=== PATIENT | male | born 1960 | race Caucasian/White ===

== ENCOUNTER 2024-12-05 00:35 | Day surgery (SDC) | payer MEDICARE, OTHER, SELFPAY ==
[2024-11-20 13:56] VITALS: BMI 28.5
--- OUTSIDE RECORDS SUMMARY | 2024-12-05 00:41 | XMS_ITS | CONTINUITY OF CARE DOCUMENT ---
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 Atrial enlargement, right active Rose Marie Ranjan timiglia 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 ENCOUNTERS Date Type Provider Location Encounter Diag nosis - In-person encounter Office Visit Danny Balderas MD [place] [facility] - In-person encounter Office Visit Danny Balderas MD [place] [facility] Hypertension benign essentialAbnormal stress electrocardiogramAtrial enlargement, right VITAL SIGNS Date Observation Value Provider Body Mass Index (Ratio) 28.17 kg/m2 Timothy Balderas MD respiratory rate E&M 19 /min Rosalia house blood pressure, diastolic 89 mm[Hg] An thomas Young blood pressure, systolic 158 mm[Hg] Any prudence Young height E&M 71 [in_i] Rosalia Young blood pressure, cuff size large An thomas Young oxygen saturation, oximetry 98 % Rosalia Hector weight E&M 202 [lb_av] Rosalia Hector pulse rate 76 /min Rosalia Hector blood pressure, diastolic 99 mm[Hg] Jonane nkLogic blood pressure, systolic 166 mm[Hg] Princess kLogic blood pressure, diastolic 99 mm[Hg] Am tana Ventimiglia [facility] blood pressure, systolic 166 mm[Hg] [place] nda Ventimiglia [facility] oxygen saturation, oximetry 96 % Rose Marie Ventimiglia [facility] pulse rate 90 /min Rose Marie Ventimig wade [facility] weight E&M 197.2 [lb_av] Rose Marie Ventimi glia 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 Danny Balderas MD social history reviewed E&M revi ewed - no changes required Danny Balderas MD smoking, year quit 20 Rosaliaprudence dumasmo cigarette use yes Rosalia Hector smoking status Former smoker Rosalia Slade jacob drug use no Rose Marie Ventimig wade [facility] alcohol use, average drinks per day social Rose Marie Ventimiglia [facility] alcohol use yes Rose Marie Ventimig wade [facility] smoking, year quit 20 Rose Marie Ve ntimiglia [facility] cigarette use yes Rose Marie Ventimi glia [facility] smoking status Former smoker Rose Marie Venti miglia [facility] INSURANCE PROVIDERS Payer name Policy type / Coverage type Leyda red democrat ID [employer] [facility] [id number] ADVANCE DIRECTIVES Name Date DISCUSSED - NO DECISION MADE TREATMENT PLAN Date Name Performer [id number],C,Stress echo w as normal. Danny Balderas MD [id number],C,H is BP at home shows ranges from 109-139/71-85. B P today: 158/89 P rior BP: 166/99 (08/04/2022) His updated medication list for this problem includes: Telmisartan 80 Mg Tablet (Telmisartan) Amlodipine 10 Mg Tablet (Amlodipine) Propranolol 60 Mg Capsule,extended Release 24 Hr (Propranolol) Danny Balderas MD [id number],C,e cho done shows mod rt atrial enlargement and mild RV enlargement. Based on this concer for possible ASD or PFO will plan MARCELLO for further evaluation Rose Marie Ng [facility] [id number],C,B lood pressure elevated this am, but patient reports controlled as day goes on. Will plan for RPM. Will check BP twice a day and f/u post testing. If elevated will add HCTZ H is updated medication list for this problem includes: Telmisartan 80 Mg Tablet (Telmisartan) Amlodipine 10 Mg Tablet (Amlodipine) Propranolol 60 Mg Capsule,extended Release 24 Hr (Propranolol) Orders: 9 9205 HIGH 60-74 min (CPT-97059) S tress Echo (CPT-17128) T EE - GC (*) R PM (remote patient monitoring) (71214) Rose Marie Hernandez [facility] [id number],C,p atient had stress test 07/05/22 that showed svt and ischemia with exercise. Patient at this time is asymptomatic other than rare palpitations that occur monthly. Recommendatio is for stress echo to evaluate for WMA. Will f/u post testing or sooner if needed. H is updated medication list for this problem includes: Amlodipine 10 Mg Tablet (Amlodipine) Propranolol 60 Mg Capsule,extended Release 24 Hr (Propranolol) Rose Marie Ng [facility] Cardiology:Stress echo was carl Balderas MD Cardiology:His BP at home shows ranges from 109-139/71-85. B P today: 158/89 P rior BP: 166/99 (08/04/2022) His updated medication list for this problem includes: Telmisartan 80 Mg Tablet (Telmisartan) Amlodipine 10 Mg Tablet (Amlodipine) Propranolol 60 Mg Capsule,extended Release 24 Hr (Propranolol) Danny Balderas MD Cardiology-New Visit :echo done shows mod rt atrial enlargement and mild RV enlargement. Based on this concer for possible ASD or PFO will plan MARCELLO for further evaluation Rose Marie Ng [facility] Cardiology-New Visit :Blood pressure elevated this am, but patient reports controlled as day goes on. Will plan for RPM. Will check BP twice a day and f/u post testing. If elevated will add HCTZ H is updated medication list for this problem includes: Telmisartan 80 Mg Tablet (Telmisartan) Amlodipine 10 Mg Tablet (Amlodipine) Propranolol 60 Mg Capsule,extended Release 24 Hr (Propranolol) Orders: 9 9205 HIGH 60-74 min (CPT-64640) S tress Echo (CPT-47074) T EE - GC (*) R PM (remote patient monitoring) (52111) Rose Marie Ng [facility] Cardiology-New Visit :patient had stress test 07/05/22 that showed svt and ischemia with exercise. Patient at this time is asymptomatic other than rare palpitations that occur monthly. Recommendatio is for stress echo to evaluate for WMA. Will f/u post testing or sooner if needed. H is updated medication list for this problem includes: Amlodipine 10 Mg Tablet (Amlodipine) Propranolol 60 Mg Capsule,extended Release 24 Hr (Propranolol) Rose Marie Santosmahin [facility] Date Name CT, Coronary Calcium Score RPM (remote patient monitoring) MARCELLO - GC Stress Echo
--- OUTSIDE RECORDS SUMMARY | 2024-12-05 00:41 | XMS_ITS | Data Portability ---
Author Organization [facility] Address [address] [place] [address] Care Team Providers Care Professional Skateboarder Name Role Phone REINALDO ARBOLEDA Primary Care Provider [phone] Assessment Encounter Date Assessment Date Assessment LastModified by Organization Details LastModified Time 06/20/2024 06/20/2024 old records. Mupirocin ointment to nostrils b.i.d. for 10 days. His blood pressure is up a little bit today but he says he is nervous seeing a new physician. He says it does not run that way at home and base of the does not want to adjust any medications at this time because his numbers have been good. We will get blood work we will get colonoscopies he seems to be tolerating the beta-santos despite Asthma and that interaction was discussed healthy lifestyle care instructions he will follow up with me in 4 months [email or web address] Not available 07/06/2024 21:30:53 10/24/2024 10/24/2024 blood work has been ordered Prevnar 20 colonoscopy rescue inhaler tolerates the propranolol return to clinic 6 months [email or web address] Not available 10/24/2024 20:54:53 Plan of Treatment Reminders Order Date Submit Date Provider Last Modified By Organization Details Last Modified Time Details Appointments ANY 15 2024 09:00A M Reinaldo Arboleda MD Not available Not available Not available Lab CBC w/ auto diff 2024 025 [facility], [address], [address], [place], [address], 10/25/2024 08:23:08 CMP, serum or plasma 2024 025 [facility], [address], [address], [place], [address], 10/25/2024 08:23:07 lipid panel, serum 2024 025 [facility], [address], [address], [place], [address], 10/25/2024 08:23:06 PSA, total, serum or plasma 2023 024 [facility], [address], [address], [place], [address], 06/21/2024 08:25:53 lipid panel, serum 2023 024 [facility], [address], [address], [place], [address], 06/21/2024 08:25:49 CMP, serum or plasma 2023 024 [facility], [address], [address], [place], [address], 06/21/2024 08:25:50 CBC w/ auto diff 2023 024 [facility], [address], [address], [place], [address], 06/21/2024 08:25:51 Referral None recorded. Procedures colonosco py screening (PROC) 2024 025 [facility], [address], [id number], [place], [address], 12/02/2024 11:30:31 Surgeries None recorded. Imaging None recorded. Medication Orders mupirocin 2 % topical ointment 2023 024 [facility], [address] [place] [address], [address], 06/20/2024 14:35:36 Patient TargetsNo targets recorded. Patient Instructions Encounter Date Encounter Id Patient Instructions Last Modified By Organization Details Last Modified Time 06/20/2024 [id number] A healthy lifestyle: care instructions kerry Not available 06/20/2024 14:28:17 10/24/2024 [id number] A healthy lifestyle: care instructions august Not available 10/24/2024 11:02:02 Reason for Referral None Reported. Results Created Date Observation Date Name Description Value Unit Range Abnormal Flag Note LastModifiedBy Organization Detail LastModifiedTime 06/20/2006/21/2024 LIPID PANEL cholesterol, total 174 mg/dL 100-19 9 Not Available [facility] ([facility]) [address] [place], [address], 06/21/2024 08:25:49 06/20/2006/21/2024 LIPID PANEL triglyceride s 131 mg/dL 0-149 Not Available [facility] ([facility]) [address] [place], [address], 06/21/2024 08:25:49 06/20/2006/21/2024 LIPID PANEL HDL cholesterol 51 mg/dL >39 Not Available [facility] ([facility]) [address] [place], [address], 06/21/2024 08:25:49 06/20/2006/21/2024 LIPID PANEL VLDL cholesterol mayra 23 mg/dL 5-40 Not Available [facility] ([facility]) [address] [place], [address], 06/21/2024 08:25:49 06/20/2006/21/2024 LIPID PANEL LDL chol calc ([facility]) 100 mg/dL 0-99 above high normal Not Available [facility] ([facility]) [address] [place], [address], 06/21/2024 08:25:49 06/20/20 24 06/21/2024 COMP. METAB OLIC PANEL (14) glucose 92 mg/dL 70-99 Not Available [facility] ([facility]) [address] [place], [address], 06/21/2024 08:25:50 06/20/20 24 06/21/2024 COMP. METAB OLIC PANEL (14) BUN 12 mg/dL 8-27 Not Available [facility] ([facility]) [address] [place], [address], 06/21/2024 08:25:50 06/20/20 24 06/21/2024 COMP. METAB OLIC PANEL (14) creatinine 0.91 mg/dL 0.76-1 .27 Not Available [facility] ([facility]) [address] [place], [address], 06/21/2024 08:25:50 06/20/20 24 06/21/2024 COMP. METAB OLIC PANEL (14) eGFR 94 mL/mi n/1.7 3 >59 Not Available [facility] ([facility]) [address] [place], [address], 06/21/2024 08:25:50 06/20/20 24 06/21/2024 COMP. METAB OLIC PANEL (14) BUN/creatini ne ratio 13 10-24 Not Available [facility] ([facility]) [address] [place], [address], 06/21/2024 08:25:50 06/20/20 24 06/21/2024 COMP. METAB OLIC PANEL (14) sodium 139 mmol/ L 134-14 4 Not Available [facility] ([facility]) [address] [place], [address], 06/21/2024 08:25:50 06/20/20 24 06/21/2024 COMP. METAB OLIC PANEL (14) potassium 4.2 mmol/ L 3.5-5. 2 Not Available [facility] ([facility]) [address] [place], [address], 06/21/2024 08:25:50 06/20/20 24 06/21/2024 COMP. METAB OLIC PANEL (14) chloride 100 mmol/ L 96-106 Not Available [facility] ([facility]) [address] [place], [address], 06/21/2024 08:25:50 06/20/20 24 06/21/2024 COMP. METAB OLIC PANEL (14) carbon dioxide, total 27 mmol/ L 20-29 Not Available [facility] ([facility]) [address] [place], [address], 06/21/2024 08:25:50 06/20/20 24 06/21/2024 COMP. METAB OLIC PANEL (14) calcium 9.5 mg/dL 8.6-10 .2 Not Available [facility] ([facility]) [address] [place], [address], 06/21/2024 08:25:50 06/20/20 24 06/21/2024 COMP. METAB OLIC PANEL (14) protein, total 7.6 g/dL 6.0-8. 5 Not Available [facility] [address] [facility] [place], [address], 06/21/2024 08:25:50 06/20/20 24 06/21/2024 COMP. METAB OLIC PANEL (14) albumin 4.4 g/dL 3.9-4. 9 Not Available [facility] ([facility] [address] [place], [address], 06/21/2024 08:25:50 06/20/20 24 06/21/2024 COMP. METAB OLIC PANEL (14) globulin, total 3.2 g/dL 1.5-4. 5 Not Available [facility] ([facility]) [address] [facility] [place], [address], 06/21/2024 08:25:50 06/20/20 24 06/21/2024 COMP. METAB OLIC PANEL (14) bilirubin, total 0.5 mg/dL 0.0-1. 2 Not Available [facility] ([facility]) [address] [place], [address], 06/21/2024 08:25:50 06/20/20 24 06/21/2024 COMP. METAB OLIC PANEL (14) alkaline phosphatase 102 IU/L 44-121 Not Available [facility] ([facility]) [address] [place], [address], 06/21/2024 08:25:50 06/20/20 24 06/21/2024 COMP. METAB OLIC PANEL (14) AST (SGOT) 17 IU/L 0-40 Not Available [facility] ([facility]) [address] [facility], [place], [address], 06/21/2024 08:25:50 06/20/20 24 06/21/2024 COMP. METAB OLIC PANEL (14) ALT (SGPT) 14 IU/L 0-44 Not Available [facility] ([facility]) [address] [place], [address], 06/21/2024 08:25:50 06/20/20 24 06/21/2024 CBC WITH DIFFE RENTI AL/PL ATELE T WBC 8.7 x10e3 /uL 3.4-10 .8 Eff ectiv e Decem froilan 20[address] [place] [id number] 5 WBC will be made* * non-o rdera ble as a stand -nupur e order code. Not Available [facility] ([facility]) [address] [place], [address], 06/21/2024 08:25:51 06/20/20 24 06/21/2024 CBC WITH DIFFE RENTI AL/PL ATELE T RBC 4.76 x10e6 /uL 4.14-5 .80 Not Available [facility] ([facility]) [address] [facility], [place], [address], 06/21/2024 08:25:51 06/20/20 24 06/21/2024 CBC WITH DIFFE RENTI AL/PL ATELE T hemoglobin 14.4 g/dL 13.0-1 7.7 Not Available [facility] ([facility]) [address] [facility], [place], [address], 06/21/2024 08:25:51 06/20/20 24 06/21/2024 CBC WITH DIFFE RENTI AL/PL ATELE T hematocrit 42.4 % 37.5-5 1.0 Not Available [facility] ([facility]) [address] [facility], [place], [address], 06/21/2024 08:25:51 06/20/20 24 06/21/2024 CBC WITH DIFFE RENTI AL/PL ATELE T MCV 89 fL 79-97 Not Available [facility] ([facility]) [address] [place], [address], 06/21/2024 08:25:51 06/20/20 24 06/21/2024 CBC WITH DIFFE RENTI AL/PL ATELE T MCH 30.3 pg 26.6-3 3.0 Not Available [facility] ([facility]) [address] [place], [address], 06/21/2024 08:25:51 06/20/20 24 06/21/2024 CBC WITH DIFFE RENTI AL/PL ATELE T MCHC 34.0 g/dL 31.5-3 5.7 Not Available [facility] ([facility]) [address] [place], [address], 06/21/2024 08:25:51 06/20/20 24 06/21/2024 CBC WITH DIFFE RENTI AL/PL ATELE T RDW 12.6 % 11.6-1 5.4 Not Available [facility] ([facility]) [address] [facility], [place], [address], 06/21/2024 08:25:51 06/20/20 24 06/21/2024 CBC WITH DIFFE RENTI AL/PL ATELE T platelets 347 x10e3 /uL 150-45 0 Not Available [facility] ([facility]) [address] [facility], [place], [address], 06/21/2024 08:25:51 06/20/20 24 06/21/2024 CBC WITH DIFFE RENTI AL/PL ATELE T neutrophils 61 % notest ab. Not Available [facility] ([facility]) [address] [facility], [place], [address], 06/21/2024 08:25:51 06/20/20 24 06/21/2024 CBC WITH DIFFE RENTI AL/PL ATELE T lymphs 24 % notest ab. Not Available [facility] ([facility]) [address] [facility], [place], [address], 06/21/2024 08:25:51 06/20/20 24 06/21/2024 CBC WITH DIFFE RENTI AL/PL ATELE T monocytes 10 % notest ab. Not Available [facility] ([facility]) [address] [place], [address], 06/21/2024 08:25:51 06/20/20 24 06/21/2024 CBC WITH DIFFE RENTI AL/PL ATELE T eos 3 % notest ab. Not Available [facility] ([facility]) [address] [place], [address], 06/21/2024 08:25:51 06/20/20 24 06/21/2024 CBC WITH DIFFE RENTI AL/PL ATELE T basos 1 % notest ab. Not Available [facility] ([facility]) [address] [place], [address], 06/21/2024 08:25:51 06/20/20 24 06/21/2024 CBC WITH DIFFE RENTI AL/PL ATELE T neutrophils (absolute) 5.4 x10e3 /uL 1.4-7. 0 Not Available [facility] ([facility]) [address] [facility], [place], [address], 06/21/2024 08:25:51 06/20/20 24 06/21/2024 CBC WITH DIFFE RENTI AL/PL ATELE T lymphs (absolute) 2.1 x10e3 /uL 0.7-3. 1 Not Available [facility] ([facility]) [address] [facility], [place], [address], 06/21/2024 08:25:51 06/20/20 24 06/21/2024 CBC WITH DIFFE RENTI AL/PL ATELE T monocytes(ab solute) 0.8 x10e3 /uL 0.1-0. 9 Not Available [facility] ([facility]) [address] [facility], [place], [address], 06/21/2024 08:25:51 06/20/20 24 06/21/2024 CBC WITH DIFFE RENTI AL/PL ATELE T eos (absolute) 0.3 x10e3 /uL 0.0-0. 4 Not Available [facility] ([facility]) [address] [place], [address], 06/21/2024 08:25:51 06/20/20 24 06/21/2024 CBC WITH DIFFE RENTI AL/PL ATELE T baso (absolute) 0.1 x10e3 /uL 0.0-0. 2 Not Available [facility] ([facility]) [address] [place], [address], 06/21/2024 08:25:51 06/20/20 24 06/21/2024 CBC WITH DIFFE RENTI AL/PL ATELE T immature granulocytes 1 % notest ab. Not Available [facility] ([facility]) [address] [facility], [place], [address], 06/21/2024 08:25:51 06/20/20 24 06/21/2024 CBC WITH DIFFE RENTI AL/PL ATELE T immature grans (abs) 0.1 x10e3 /uL 0.0-0. 1 Not Available [facility] ([facility]) [address] [facility], [place], [address], 06/21/2024 08:25:51 06/20/20 24 06/21/2024 PROST ATE-S PECIF IC AG prostate specific Ag 2.3 NG/mL 0.0-4. 0 Haresh ECLIA metho dolog y. Accor ding to the Ameri can [employer] g[employer] iatio n, Serum PSA shoul d decre ase and remai n at undet ectab le level s after radic al prost atect stephanie. The AUA defin es bioch emica l recur rence as an initi al PSA value 0.2 ng/mL or great er follo wed by a subse quent confi rmato ry PSA value 0.2 ng/mL or great er. Value s obtai myranda with diffe rent assay metho ds or kits canno t be used inter redding eably . Resul ts canno t be inter prete d as absol andreafski evide nce of the prese nce or absen ce of joceline horn se. Not Available [facility] ([facility]) [address] [facility], [place], [address], 06/21/2024 08:25:52 10/25/19 25 10/25/2024 LIPID PANEL cholesterol, total 195 mg/dL 100-19 9 Not Available [facility] ([facility]) [address] [facility], [place], [address], 10/25/2024 08:23:06 10/25/19 25 10/25/2024 LIPID PANEL triglyceride s 131 mg/dL 0-149 Not Available [facility] ([facility]) [address] [place], [address], 10/25/2024 08:23:06 10/25/19 25 10/25/2024 LIPID PANEL HDL cholesterol 50 mg/dL >39 Not Available [facility] ([facility]) [address] [place], [address], 10/25/2024 08:23:06 10/25/19 25 10/25/2024 LIPID PANEL VLDL cholesterol mayra 23 mg/dL 5-40 Not Available [facility] ([facility]) [address] [place], [address], 10/25/2024 08:23:06 10/25/19 25 10/25/2024 LIPID PANEL LDL chol calc ([facility]) 122 mg/dL 0-99 above high normal Not Available [facility] ([facility]) [address] [place], [address], 10/25/2024 08:23:06 10/25/19 25 10/25/2024 COMP. METAB OLIC PANEL (14) glucose 89 mg/dL 70-99 Not Available [facility] ([facility]) [address] [place], [address], 10/25/2024 08:23:07 10/25/19 25 10/25/2024 COMP. METAB OLIC PANEL (14) BUN 15 mg/dL 8-27 Not Available [facility] ([facility]) [address] [place], [address], 10/25/2024 08:23:07 10/25/19 25 10/25/2024 COMP. METAB OLIC PANEL (14) creatinine 0.93 mg/dL 0.76-1 .27 Not Available [facility] ([facility]) [address] [place], [address], 10/25/2024 08:23:07 10/25/19 25 10/25/2024 COMP. METAB OLIC PANEL (14) eGFR 91 mL/mi n/1.7 3 >59 Not Available [facility] ([facility]) [address] [facility], [place], [address], 10/25/2024 08:23:07 10/25/19 25 10/25/2024 COMP. METAB OLIC PANEL (14) BUN/creatini ne ratio 16 10-24 Not Available [facility] ([facility]) [address] [facility], [place], [address], 10/25/2024 08:23:07 10/25/19 25 10/25/2024 COMP. METAB OLIC PANEL (14) sodium 139 mmol/ L 134-14 4 Not Available [facility] ([facility]) [address] [facility], [place], [address], 10/25/2024 08:23:07 10/25/19 25 10/25/2024 COMP. METAB OLIC PANEL (14) potassium 4.5 mmol/ L 3.5-5. 2 Not Available [facility] ([facility]) [address] [facility] [place], [address], 10/25/2024 08:23:07 10/25/19 25 10/25/2024 COMP. METAB OLIC PANEL (14) chloride 100 mmol/ L 96-106 Not Available [facility] ([facility]) [address] [place], [address], 10/25/2024 08:23:07 10/25/19 25 10/25/2024 COMP. METAB OLIC PANEL (14) carbon dioxide, total 24 mmol/ L 20-29 Not Available [facility] ([facility]) [address] [place], [address], 10/25/2024 08:23:07 10/25/19 25 10/25/2024 COMP. METAB OLIC PANEL (14) calcium 9.8 mg/dL 8.6-10 .2 Not Available [facility] ([facility]) [address] [place], [address], 10/25/2024 08:23:07 10/25/19 25 10/25/2024 COMP. METAB OLIC PANEL (14) protein, total 7.7 g/dL 6.0-8. 5 Not Available [facility] ([facility]) [address] [place], [address], 10/25/2024 08:23:07 10/25/19 25 10/25/2024 COMP. METAB OLIC PANEL (14) albumin 4.5 g/dL 3.9-4. 9 Not Available [facility] ([facility]) [address] [place], [address], 10/25/2024 08:23:07 10/25/19 25 10/25/2024 COMP. METAB OLIC PANEL (14) globulin, total 3.2 g/dL 1.5-4. 5 Not Available [facility] ([facility]) [address] [place], [address], 10/25/2024 08:23:07 10/25/19 25 10/25/2024 COMP. METAB OLIC PANEL (14) bilirubin, total 0.4 mg/dL 0.0-1. 2 Not Available [facility] ([facility]) [address] [place], [address], 10/25/2024 08:23:07 10/25/19 25 10/25/2024 COMP. METAB OLIC PANEL (14) alkaline phosphatase 107 IU/L 44-121 Not Available [facility] ([facility]) [address] [place], [address], 10/25/2024 08:23:07 10/25/19 25 10/25/2024 COMP. METAB OLIC PANEL (14) AST (SGOT) 19 IU/L 0-40 Not Available [facility] ([facility]) [address] [place], [address], 10/25/2024 08:23:07 10/25/19 25 10/25/2024 COMP. METAB OLIC PANEL (14) ALT (SGPT) 16 IU/L 0-44 Not Available [facility] ([facility]) [address] [facility], [place], [address], 10/25/2024 08:23:07 10/25/19 25 10/25/2024 CBC WITH DIFFE RENTI AL/PL ATELE T WBC 6.8 x10e3 /uL 3.4-10 .8 Not Available [facility] ([facility]) [address] [facility], [place], [address], 10/25/2024 08:23:08 10/25/19 25 10/25/2024 CBC WITH DIFFE RENTI AL/PL ATELE T RBC 4.90 x10e6 /uL 4.14-5 .80 Not Available [facility] ([facility]) [address] [facility], [place], [address], 10/25/2024 08:23:08 10/25/19 25 10/25/2024 CBC WITH DIFFE RENTI AL/PL ATELE T hemoglobin 14.4 g/dL 13.0-1 7.7 Not Available [facility] ([facility]) [address] [place], [address], 10/25/2024 08:23:08 10/25/19 25 10/25/2024 CBC WITH DIFFE RENTI AL/PL ATELE T hematocrit 44.0 % 37.5-5 1.0 Not Available [facility] ([facility]) [address] [place], [address], 10/25/2024 08:23:08 10/25/19 25 10/25/2024 CBC WITH DIFFE RENTI AL/PL ATELE T MCV 90 fL 79-97 Not Available [facility] ([facility]) [address] [place], [address], 10/25/2024 08:23:08 10/25/19 25 10/25/2024 CBC WITH DIFFE RENTI AL/PL ATELE T MCH 29.4 pg 26.6-3 3.0 Not Available [facility] ([facility]) [address] [facility], [place], [address], 10/25/2024 08:23:08 10/25/19 25 10/25/2024 CBC WITH DIFFE RENTI AL/PL ATELE T MCHC 32.7 g/dL 31.5-3 5.7 Not Available [facility] ([facility]) [address] [facility], [place], [address], 10/25/2024 08:23:08 10/25/19 25 10/25/2024 CBC WITH DIFFE RENTI AL/PL ATELE T RDW 13.0 % 11.6-1 5.4 Not Available [facility] ([facility]) [address] [facility], [place], [address], 10/25/2024 08:23:08 10/25/19 25 10/25/2024 CBC WITH DIFFE RENTI AL/PL ATELE T platelets 358 x10e3 /uL 150-45 0 Not Available [facility] ([facility]) [address] [facility], [place], [address], 10/25/2024 08:23:08 10/25/19 25 10/25/2024 CBC WITH DIFFE RENTI AL/PL ATELE T neutrophils 60 % notest ab. Not Available [facility] ([facility]) [address] [facility], [place], [address], 10/25/2024 08:23:08 10/25/19 25 10/25/2024 CBC WITH DIFFE RENTI AL/PL ATELE T lymphs 26 % notest ab. Not Available [facility] ([facility]) [address] [place], [address], 10/25/2024 08:23:08 10/25/19 25 10/25/2024 CBC WITH DIFFE RENTI AL/PL ATELE T monocytes 8 % notest ab. Not Available [facility] ([facility]) [address] [facility], [place], [address], 10/25/2024 08:23:08 10/25/19 25 10/25/2024 CBC WITH DIFFE RENTI AL/PL ATELE T eos 5 % notest ab. Not Available [facility] ([facility]) [address] [facility], [place], [address], 10/25/2024 08:23:08 10/25/19 25 10/25/2024 CBC WITH DIFFE RENTI AL/PL ATELE T basos 1 % notest ab. Not Available [facility] ([facility]) [address] [facility], [place], [address], 10/25/2024 08:23:08 10/25/19 25 10/25/2024 CBC WITH DIFFE RENTI AL/PL ATELE T neutrophils (absolute) 4.1 x10e3 /uL 1.4-7. 0 Not Available [facility] ([facility]) [address] [facility], [place], [address], 10/25/2024 08:23:08 10/25/19 25 10/25/2024 CBC WITH DIFFE RENTI AL/PL ATELE T lymphs (absolute) 1.8 x10e3 /uL 0.7-3. 1 Not Available [facility] ([facility]) [address] [place], [address], 10/25/2024 08:23:08 10/25/19 25 10/25/2024 CBC WITH DIFFE RENTI AL/PL ATELE T monocytes(ab solute) 0.6 x10e3 /uL 0.1-0. 9 Not Available [facility] ([facility]) [address] [place], [address], 10/25/2024 08:23:08 10/25/19 25 10/25/2024 CBC WITH DIFFE RENTI AL/PL ATELE T eos (absolute) 0.3 x10e3 /uL 0.0-0. 4 Not Available [facility] ([facility]) [address] [facility], [place], [address], 10/25/2024 08:23:08 10/25/19 25 10/25/2024 CBC WITH DIFFE RENTI AL/PL ATELE T baso (absolute) 0.0 x10e3 /uL 0.0-0. 2 Not Available [facility] ([facility]) [address] [facility], [place], [address], 10/25/2024 08:23:08 10/25/19 25 10/25/2024 CBC WITH DIFFE RENTI AL/PL ATELE T immature granulocytes 0 % notest ab. Not Available [facility] ([facility]) [address] [facility], [place], [address], 10/25/2024 08:23:08 10/25/19 25 10/25/2024 CBC WITH DIFFE RENTI AL/PL ATELE T immature grans (abs) 0.0 x10e3 /uL 0.0-0. 1 Not Available [facility] ([facility]) [address] [place], [address], 10/25/2024 08:23:08 Result Notes None recorded. Problems Name Problem SNOMED Code Status Onset Date Resolution Date Notes Provider Name and Address Organization Details Recorded Time Essential hypertension 81668861 Active 2023 HAILEY [place], [place] - [facility] 4 14:24:13 Screening for malignant neoplasm of prostate Active 2023 HA[place] [facility] 4 14:24:31 Overweight 263902350 Active 2023 HA[place] [facility] 4 14:24:32 Overweight 628030348 Active 2023 Luiz Dai MA car[place], [facility] 15:08:51 Asthma 032394427 Active 2023 Reinaldo Arboleda MD Attn: Mich cox,[address] [facility], [place], [address], [place] - [facility] 4 21:28:36 Chronic back pain 858281191 Active 2023 Reinaldo Arboleda MD Attn: Mich cox,[address] [facility], [place], [address], [place] [facility] 4 21:28:46 Problem Notes None recorded. Procedures Surgical History Date Name Laterality Status Provider Name and Address Organization Details Recorded Time Appendectomy completed Linnea Machado [facility] 1 08/20/2023 12:59:58 Back Surgery completed [facility] 1 08/20/2023 13:00:08 Hernia Repair completed Linnea Machado [facility] 06/20/2024 13:00:17 Joint Replacement completed [facility] 06/20/2024 13:00:25 Knee Surgery completed [facility] 1 08/20/2023 13:00:33 Imaging Results None recorded. Procedure Notes None recorded. Medical Equipment None Reported. Allergies Allergen ID Allergen Name Allergen Category Reaction Reaction Severity Criticality Documentation Date Start Date Code Code System Note Provider Name and Address Organization Details Recorded Time [id number] acetamino phen / oxycodone medicatio n dizziness mild low 06/20/2024 25844 3 RxNorm Linnea Machado [place], [place] 12:48:13 Medications Name Sig Start Date Stop Date Status Note LastModified by Organization Details LastModified Time hydrocodone 5 mg-acetamin ophen 325 mg tablet TAKE 1 TABLET BY MOUTH EVERY 4 HOURS NEEDED FOR PAIN 05/15 completed Not Available Not Available Not Available propranolol ER 60 mg capsule,24 hr,extended release 05/15 completed Not Available Not Available Not Available propranolol 60 mg tablet Take 1 tablet twice a day by oral route. active Not Available Not Available No t Available amoxicillin 500 mg tablet TAKE 4 TABLETS BY MOUTH 1 HOUR PRIOR TO DENTAL APPOINTME NT active Not Available Not Available No t Available Celebrex 200 mg capsule Take 2 capsules every day by oral route. 2024 active Not Available Not Available Not Avai lable amlodipine 10 mg tablet Take 1 tablet every day by oral route. 2024 active Not Available Not Available Not Avai lable telmisartan 80 mg tablet Take 1 tablet every day by oral route. 2024 active Not Available Not Available Not Avai lable mupirocin 2 % topical ointment apply to each nostril BID x2wks active Not Available Not Available No t Available albuterol sulfate HFA 90 mcg/actuati on aerosol inhaler Inhale 2 puffs every 4 hours by inhalatio n route as needed. 2024 active Not Available Not Available Not Avai lable Vitals Date Recorded Body height Body mass index (BMI) Body weight Heart rate Oxygen saturation Oxygen saturation in Arterial blood by Pulse oximetry Systolic blood pressure Diastolic blood pressure Provider Name and Address Organization Details Last Updated DateTime 4 177.8 cm 29.2 kg/m2 29340.9 7 g 71 /min 96 % 96 % 150 mm[Hg] 82 mm[Hg] Linnea Machado MA [facility] 4 12:47:37 Date Recorded Body height Body mass index (BMI) Body weight Heart rate Oxygen saturation Oxygen saturation in Arterial blood by Pulse oximetry Systolic blood pressure Diastolic blood pressure Provider Name and Address Organization Details Last Updated DateTime 5 177.8 cm 29.3 kg/m2 02963.8 4 g 75 /min 99 % 99 % 136 mm[Hg] 82 mm[Hg] Linnea Machado MA [facility] 5 09:51:55 Social History Question Answer Notes LastModified by Organizat ion Details LastModified Time Tobacco Smoking Status [facility] 13:01:52 Do You Have An Advance Directive? No Information not available 06/20/2024 What Is Your Level Of Alcohol Consumption? Occasional Information not available 06/20/2024 Are You Blind Or Do You Have Difficulty Seeing? No Information not available 06/20/2024 What Is Your Level Of Caffeine Consumption? Occasional Information not available 06/20/2024 In The 14 Days Before Symptom Onset, Have You Had Close Contact With A Laboratory-confir med COVID-19 While That Case Was Ill? No Information not available 06/20/2024 In The 14 Days Before Symptom Onset, Have You Had Close Contact With A Person Who Is Under Investigation For COVID-19 While That Person Was Ill? No Information not available 06/20/2024 Have You Been To An Area Known To Be High Risk For COVID-19? No Information not available 06/20/2024 Are You Deaf Or Do You Have Serious Difficulty Hearing? No Information not available 06/20/2024 What Type Of Diet Are You Following? REGULAR Information not available 06/20/2024 Are There Any Guns Present In Your Home? No Information not available 06/20/2024 What Was The Date Of Your Most Recent Tobacco Screening? 10/24/2024 Information not available 10/24/2024 What Is Your Relationship Status? Information not available 06/20/2024 Do You Use Your Seat Belt Or Car Seat Routinely? Yes Information not available 06/20/2024 Do You Have Smoke And Carbon Monoxide Detectors In Your Home? Yes Information not available 06/20/2024 How Much Tobacco Do You Smoke? No Information not available 06/20/2024 Do You Use Any Illicit Or Recreational Drugs? No Information not available 06/20/2024 Do You Use Sunscreen Routinely? No Information not available 06/20/2024 Has Tobacco Cessation Counseling Been Provided? No Information not available 06/20/2024 Do You Or Have You Ever Used Any Other Forms Of Tobacco Or Nicotine? No Information not available 06/20/2024 Sex: Male Functional Status Question Answer Note LastModified by Organization D etails LastModified Time Are you able to care for yourself? Yes Information n ot available 06/20/2024 Mental Status None recorded. Family History Relationship Description Onset Age of this Age Resolved Age Notes LastModified by Organization Details LastModified Time Father Asthma gwardma Not available 13:00:49 Father Heart disease gwardma Not available 2023 13:01:02 Mother Heart disease gwardma Not available 2023 13:01:02 Mother Hypertensive disorder gwardma Not available 2023 13:01:14 Medical History Condition Response Muscle, Joint, or Bone Problems Y High Blood Pressure Y Asthma Y Allergies Y Immunizations Vaccine Type Date Status Note Provider Nam e and Address Organization Details Recorded Time Influenza, split virus, quadrivalent, preservative 6 completed HAILEY Earl, [place] - [facility] 10/24/2024 09:54:04 COVID-19, mRNA, LNP-S, PF, 100 mcg/0.5mL dose or 50 mcg/0.25mL dose 1 completed HAILEY Earl, [place] [facility] 10/24/2024 09:54:04 COVID-19, mRNA, LNP-S, PF, 100 mcg/0.5mL dose or 50 mcg/0.25mL dose 1 completed HAILEY Earl, [place] [facility] 10/24/2024 09:54:04 pneumococcal polysaccharide PPV23 2 completed HA[place] [facility] 10/24/2024 09:54:04 Tdap 8 completed HA[place] [facility] 10/24/2024 09:54:04 Influenza, split virus, trivalent, PF 4 [place] [facility] 10/24/2024 09:54:04 DTaP, 5 pertussis antigens 2 completed HAILEY [place] [facility] 10/24/2024 09:54:04 Influenza, split virus, quadrivalent, PF 4 completed [place] [facility] 10/24/2024 09:54:04 Influenza, split virus, quadrivalent, PF 8 completed [place] [facility] 10/24/2024 09:54:04 Influenza, split virus, quadrivalent, PF 0 [place] [facility] 10/24/2024 09:54:04 Influenza, split virus, quadrivalent, PF 4 completed Linnea Machado [place], [place] [facility] 10/24/2024 09:54:04 Influenza, split virus, quadrivalent, PF 7 completed Linnea Mach[place] [facility] 10/24/2024 09:54:04 Influenza, split virus, quadrivalent, PF 2 completed Linnea Mach[place] [facility] 10/24/2024 09:54:04 Influenza, split virus, quadrivalent, PF 1 completed [facility] [facility] 10/24/2024 09:54:04 Influenza, high-dose, trivalent, PF 4 completed Reinaldo Arboleda MD Attn: Accounting,[address] [place], [address], [place] [facility] 07/06/2024 21:24:51 Pneumococcal conjugate PCV20, polysaccharide [id number] conjugate, adjuvant, PF 5 completed Reinaldo Arboleda MD Attn: [address]ing[address] [place], [address], [place] [facility] 10/24/2024 20:54:47 Past Encounters Encounter ID Performer Location Encounter Start Date Encounter Closed Date Diagnosis/Indication Diagnosis SNOMED-CT Code Diagnosis ICD10 Code Diagnosis Note [id number] [facility] [address] [place] [phone] 06/20/2024 12:07:21 06/20/2024 14:25:59 Body mass index 25-29 - overweight 946289462 Z68.29 Overweight 661722926 E66 .3 Essential hypertension 40338895 I10 Screening for malignant neoplasm of prostate 246479932 Z12.5 Cellulitis 889828889 L03 .90 Administra tion of influenza vaccine 50412631 Z23 Asthma 021761941 J45.90 9 Chronic back pain 150880 002 G89.29 [id number] Reinaldo Arboleda MD [facility] (Adult Med) [address] [place] [address], [place] [phone] 10/24/2024 09:42:02 10/24/2024 10:23:42 Body mass index 25-29 - overweight 153757110 Z68.29 Overweight 446072413 E66 .3 Administra tion of pneumococcal vaccine 45960829 Z23 Essential hypertension 44631509 I10 Screening for malignant neoplasm of colon 594120538 Z12.11 Asthma 331567858 J45.90 9 Chronic back pain 483103 002 G89.29 Health Concerns Section Related Observation LastModified by Organization Detai ls LastModified Time None Recorded Concern Status LastModified by Organization Details LastModified Time None Recorded Advance Directives Directive N: Payers Encounter Date Sequence Insurance Name Policy Number Policy Foss Covered Member ID Foss Member ID Guarantor Name 06/20/2024 1 [facility] (MEDICARE REPLACEMENT/ ADVANTAGE - HMO) [id number] Alvaro Gale Humphrey [id number] Soren Humphrey 06/20/2024 2 FOR LIFE () Soren Humphrey [id number] Soren Humphrey 10/24/2024 1 [facility] (MEDICARE REPLACEMENT/ ADVANTAGE - HMO) [id number] Alvaro Beasley Kam [id number] Soren Humphrey 10/24/2024 2 FOR LIFE () Soren Humphrey [id number] Soren Hmuphrey Notes Date Note Type Note Provider Name and Address Organization Details Recorded Time 06/20/2024 text/html 64-year-old hypertensive asthma osteoarthritis history of back surgery comes in to establish meds albuterol amlodipine 10 mg daily telmisartan 80 mg daily Celebrex 200 mg b.i.d. propranolol ER 60 mg daily.Also complains of a little bit of nasal discharge that is a little bit purulentallergies Percocet causes him to have a out-of-body experience surgeries low back was done in [facility] right inguinal hernia umbilical hernia by Dr. Tran. Left total knee. Family history mother at 75 she was a vasculopath father at age 73 from COPD. Social history does not smoke vape alcohol he is retiredhe will take a flu shot today but no COVID he will consider shingles maybe believes he is due for colonoscopy Reinaldo Arboleda MD Attn: Accounting[address] [place], [address], [facility] 07/06/2024 21:31:14 10/24/2024 text/html Blood pressure i s doing fine no headache or chest pain or shortness of breath his back has been doing good and arthritic complaints has been doing fine interval history he had cough and congestion either COVID or pneumonia by his account but he is all over that and back to baseline history of asthma currently asymptomatic Reinaldo Arboleda MD Attn: Accounting,[address] [facility], [place], [address], [facility] 10/24/2024 20:55:04
[2024-12-05 11:40] VITALS: BP 161/83; PULSE 66; RESP 20; TEMP 36.3; O2SAT 97
[2024-12-05] MEDS: LACTATED RINGERS 1,000 ML 150 ML IV CONT (11:51)
--- NOTE | 2024-12-05 12:02 | PM.HPGS ---
History of Present Illness History of Present Illness Consent: Risks, benefits, and alternatives have been discussed and questions answered. Patient agrees to proceed with procedure. Chief complaint: Encounter for screening for malignant neoplasm of Narrative: Alvaro Humphrey Jr. is a 64 year old male here for screening colonoscopy, last one about 15 years ago Review of Systems Review of Systems: All systems reviewed & are unremarkable except as noted in HPI and below PMFSH Past Medical History Medical History (Updated 12/05/24 @ 12:03 by Oz Cherry MD) Colon cancer screening Social History Social History Smoking packs per day: 0.5 Smoking cigarettes per day: 10.0 Smoking status: Former smoker Tobacco type: cigarettes Alcohol intake: current Drinks per week: 10 Alcohol use details: beer Living arrangements: with family Spiritual care concerns: No Meds Home Medications and Allergies Home Medications ?Medication ?Instructions ?Recorded ?Confirmed ?Type amlodipine 10 mg tablet 10 mg PO DAILY 11/20/24 12/05/24 History celecoxib 200 mg capsule 200 mg PO 11/20/24 History propranolol 60 mg capsule,24 60 mg PO Q24H 11/20/24 12/05/24 History hr,extended release telmisartan 80 mg tablet 80 mg PO DAILY 11/20/24 12/05/24 History Allergies Allergy/AdvReac Type Severity Reaction Status Date / Time No Known Allergies Allergy Unknown Verified 12/05/24 11:38 Vital Signs Vital Signs - 24 hr 12/05/24 11:40 Temperature 97.4 F L Pulse Rate 66 Respiratory Rate 20 Blood Pressure 161/83 H Pulse Oximetry 97 Oxygen Delivery Room Air Exam Const: General: comfortable and no acute distress HENMT: Face/Nose/Sinus: Normal nares present Eyes: General: appearance normal, both eyes and all related structures Neck: Neck: no JVD Resp: Auscultation: clear to auscultation bilaterally Cardio: Rate: regular rate Rhythm: regular rhythm GI: Inspection: non-distended GI Palp: Yes Soft to palpation Skin: General skin exam: normal color Neuro: General: gait normal Speech: normal speech Extrem: General: normal to inspection Psych: Mental Status: mental status grossly normal Assessment and Plan Assessment and plan (1) Colon cancer screening: Code(s): Z12.11 - Encounter for screening for malignant neoplasm of colon Status: Acute Assessment and Plan: colonoscopy
[2024-12-05 12:15] VITALS: BP 111/62; PULSE 64; RESP 15; O2SAT 97
[2024-12-05 12:25] VITALS: BP 115/69; PULSE 57; RESP 11; O2SAT 97
[2024-12-05 12:35] VITALS: BP 129/84; PULSE 63; RESP 22; O2SAT 97
== END 2024-12-05 12:53 | disposition home or self-care (01) ==
PROVIDERS: PCP Internal Medicine; Referring Provider Internal Medicine; Visit Provider Internal Medicine Gastroenterology
PROC: 0DJD8ZZ Inspection of Lower Intestinal Tract, Via Natural or Artificial Opening Endoscopic (ICD-10-PCS; CPT 45378; principal; 2024-12-05 12:45)
DX: Z12.11 Encounter for screening for malignant neoplasm of colon (principal); K64.8 Other hemorrhoids; Z79.1 Long term (current) use of non-steroidal anti-inflammatories (NSAID); Z87.891 Personal history of nicotine dependence
CPT/HCPCS: G0121; J2704; J7120